=== PATIENT | female | born 1995 | race Asian ===

== ENCOUNTER 2020-05-16 18:11 | Emergency (ER) | payer SELFPAY ==
[~2020-05-16] VITALS: Ht 162.6 cm; Wt 55.0 kg
[2020-05-16 18:20] VITALS: BP 130/76
[2020-05-16 21:13] LABS: HEPATITIS B SURFACE AB 224.6 mIU/mL
[2020-05-16 21:24] LABS: HEPATITIS B SURFACE ANTIGEN NEGATIVE
[2020-05-18 05:12] LABS: HIV SCREEN 4G Non Reactive (Non Reactive)
== END 2020-05-16 20:55 | disposition home or self-care (01) ==
LOC: ER 18:11
DX: S61.235A Puncture wound without foreign body of left ring finger without damage to nail, initial encounter (principal); W46.1XXA Contact with contaminated hypodermic needle, initial encounter; R03.0 Elevated blood-pressure reading, without diagnosis of hypertension; W01.118A Fall on same level from slipping, tripping and stumbling with subsequent striking against other sharp object, initial encounter; Y93.89 Activity, other specified; Y92.89 Other specified places as the place of occurrence of the external cause; Z20.822 Contact with and (suspected) exposure to COVID-19
CPT/HCPCS: 36415; 87389; 99281